=== PATIENT | female | born 1975 | race American Indian/Alaskan Native ===

== ENCOUNTER 2019-01-12 12:10 | Emergency (ER) | payer BC, OTHER ==
--- NOTE | 2019-01-12 13:30 | ED ---
Head Injury - HPI Summary HPI Summary: This patient is a 43 year old F presenting to [facility] accompanied by friend with a chief complaint of trauma from fall, today at 1120. Pt accidentally tripped and fell on concrete. Pt hit her nose, which is swollen, and cut the inside of her lip. Pt reports LOC for approx. one minute, and when she returned to consciousness her leg muscles felt paralyzed for a short period of time, could not see out of right eye, and she had mid back pain. Pt reports mid back pain, headache, and scraped leg now. Pt previously had a concussion in July. LNMP: 2 weeks ago. Pt has no PMHx, but has FHx of HTN, HLD, and diabetes. Pt does not drink, take drugs or smoke. - History Of Current Complaint Chief Complaint: EDHeadInjury Stated Complaint: FELL/INJURIES PER PT Time Seen by Provider: 01/12/19 13:07 Hx Obtained From: Patient Mechanism Of Injury: Direct Blow, Fall From A Standing Position Onset/Duration: Started Hours Ago - fell at 1120 Onset of Pain: Post Accident Severity Currently: Severe Pain Intensity: 8 Pain Scale Used: 0-10 Numeric Location of Head Injury: Frontal Associated Signs And Symptoms: LOC (Time In Secs./Mins/Hrs) - 1 minute, Swelling , Redness, Headache, Other: - upper back pain - Allergies/Home Medications Allergies/Adverse Reactions: Allergies Allergy/AdvReac Type Severity Reaction Status Date / Time kiwi Allergy Airway Verified 01/12/19 12:18 Obstruction Home Medications: Home Medications Amitriptyline TAB* [Elavil TAB*] 10 mg PO DAILY 01/12/19 [History Confirmed ] DULoxetine CAP* [Cymbalta CAP*] 60 mg PO DAILY 01/12/19 [History Confirmed ] OLANzapine TAB* [Zyprexa 10 MG TAB*] 20 mg PO DAILY 01/12/19 [History Confirmed 01/12/19] OLANzapine TAB* [Zyprexa 5 MG TAB*] 5 mg PO DAILY 01/12/19 [History Confirmed ] lamoTRIgine [Lamotrigine] 50 mg PO BID 01/12/19 [History Confirmed 01/12/19] PMH/Surg Hx/FS Hx/Imm Hx Respiratory History: Reports: Hx Asthma - A CHILD Sensory History: Reports: Hx Contacts or Glasses Denies: Hx Hearing Aid Opthamlomology History: Reports: Hx Contacts or Glasses Neurological History: Reports: Hx Migraine - hx of - Surgical History Surgery Procedure, Year, and Place: TUBAL LIGATION 2006 [facility] Hx Anesthesia Reactions: No Infectious Disease History: No Infectious Disease History: Denies: Traveled Outside the [place] in Last 30 Days - Family History Known Family History: Positive: Cardiac Disease, Hypertension, Diabetes - Social History Alcohol Use: None Substance Use Type: Reports: None Smoking Status (MU): Never Smoked Tobacco Do You Chew or Dip Tobacco: No Review of Systems Positive: Blurred Vision - Could not see out of right eye Positive: Other - Positive: Swollen Nose Positive: Other - Positive: Scraped Leg, Mid-Back Pain Positive: Headache All Other Systems Reviewed And Are Negative: Yes Physical Exam - Summary Physical Exam Summary: VITAL SIGNS: Reviewed. GENERAL: Patient is a well-developed and nourished female who is lying comfortable in the stretcher. Patient is not in any acute respiratory distress. HEAD AND FACE: No ecchymosis, hematomas or skull depressions. No sinus tenderness. Road rash on right side of face. Swelling on right side of face. EYES: PERRLA, EOMI x 2, No injected conjunctiva, no nystagmus. No photophobia. EARS: Hearing grossly intact. Ear canals and tympanic membranes are within normal limits. MOUTH: Oropharynx within normal limits. NECK: Supple, trachea is midline, no adenopathy, no JVD, no carotid bruit, no c- spine tenderness, neck with full ROM. No meningeal signs, no Kernig's or brudzinskis signs. CHEST: Symmetric, no tenderness at palpation LUNGS: Clear to auscultation bilaterally. No wheezing or crackles. CVS: Regular rate and rhythm, S1 and S2 present, no murmurs or gallops appreciated. ABDOMEN: Soft, non-tender. No signs of distention. No rebound no guarding, and no masses palpated. Bowel sounds are normal. EXTREMITIES: FROM in all major joints, no edema, no cyanosis or clubbing. NEURO: Alert and oriented x 3. No acute neurological deficits. Speech is normal and follows commands. SKIN: Dry and warm. GCS: 15 Triage Information Reviewed: Yes Vital Signs On Initial Exam: Initial Vitals Temp Pulse Resp BP Pulse Ox 98.6 F 81 18 147/96 98 01/12/19 12:14 01/12/19 12:14 01/12/19 12:14 01/12/19 12:14 01/12/19 12:14 Vital Signs Reviewed: Yes Procedures - Laceration/Wound Repair 1 Location: mouth - intermucosa Description: Irregular Anesthesia: 1.0%, Lido Length, Depth and Shape: 1.5cm Laceration/Wound Explored: clean Suture Type: Vicryl - 4-0 Number of Sutures: 3 Diagnostics - Vital Signs Vital Signs Temp Pulse Resp BP Pulse Ox 01/12/19 12:14 98.6 F 81 18 147/96 98 - Laboratory Lab Statement: Any lab studies that have been ordered have been reviewed, and results considered in the medical decision making process. - Radiology CXR Radiology Interpretation Completed By: Radiologist Summary of Radiographic Findings: CXR reveals, per radiologist, impression: No active cardiopulmonary disease. ED physician has reviewed this report. - CT Maxillofacial CT CT Interpretation Completed By: Radiologist Summary of CT Findings: Maxillofacial CT reveals, per radiologist, impression: right inferior orbital wall fracture with extension of orbital fat through the defect. ED physician has reviewed this radiology report. Brain CT CT Interpretation Completed By: Radiologist Summary of CT Findings: Brain CT reveals, per radiologist, impression: No CT evidence for traumatic brain injury. Based on correlation with the maxillofacial CT of the same date there is a RIGHT orbital floor blowout fracture with associated fluid level in the RIGHT maxillary sinus and soft tissue gas at the extraconal RIGHT orbit inferiorly. Refer to dedicated maxillofacial CT for full description. ED physician has reviewed this radiology report. Re-Evaluation - Re-Evaluation First Eval Re-Evaluation Time: 13:15 Comment: I discussed findings and results with the patient. 1622 Re-Evaluation Time: 16:25 Comment: I discussed acceptance of transfer of the patient. Head Injury Course/Dx Assessment/Plan: This patient is a 43 year old F presenting to [facility] accompanied by friend with a chief complaint of trauma from fall, today at 1120. Pt accidentally tripped and fell on concrete. Pt hit her nose, which is swollen, and cut the inside of her lip. Pt reports LOC for approx. one minute, and when she returned to consciousness her leg muscles felt paralyzed for a short period of time, could not see out of right eye, and she had mid back pain. Pt reports mid back pain, headache, and scraped leg now. Pt previously had a concussion in July. LNMP: 2 weeks ago. Pt has no PMHx, but has FHx of HTN, HLD, and diabetes. Pt does not drink, take drugs or smoke. The patient is stable in the ED. The patient doesnt have any entrapment of the eye. The patient declined any pain medication. Head CT IMPRESSION: 1. No CT evidence for traumatic brain injury. 2. Based on correlation with the maxillofacial CT of the same date there is a RIGHT. orbital floor blowout fracture with associated fluid level in the RIGHT maxillary sinus and soft tissue gas at the extraconal RIGHT orbit inferiorly. Refer to dedicated maxillofacial CT for full description. Maxillofacial CT IMPRESSION: RIGHT INFERIOR ORBITAL WALL FRACTURE WITH EXTENSION OF ORBITAL FAT THROUGH THE DEFECT. CXR IMPRESSION: NO ACTIVE CARDIOPULMONARY DISEASE. At this time we discussed the case with Dr. Baker ( ENT from [facility]) and he recommended for the patient to be transferred to the adult ED. The patient was accepted by Dr. Hebert, the ED physician. At this point I discussed the findings, test results and plan with the patient and she agrees with the plan to be transferred to [facility]. The patient continued to be stable, and she doesnt have any pain. She does not report any visual changes. Laceration was repaired by MATIAS Persaud , using 3 4-0 vicryl sutures of the intermucosa of the mouth. - Diagnoses Provider Diagnoses: Orbital wall fracture - Physician Notifications Discussed Care Of Patient With: Mark Baker - ENT Time Discussed With Above Provider: 16:18 Instructed by Provider To: Transfer - Transfer center spoke with Dr Baker from [facility], he recomends transfer of the pt to the adult ED. 16:22 - spoke with Dr. Hebert, the ED provider at [facility] who accepts the pt for transfer Discharge - Sign-Out/Discharge Documenting (check all that apply): Patient Departure - Transfer to [facility] Patient Received Moderate/Deep Sedation with Procedure: No - Discharge Plan Condition: Stable Disposition: TRANS HIGHER L OF CARE FAC Referrals: Judi Miller MD [Primary Care Provider] - - Billing Disposition and Condition Condition: STABLE Disposition: Trans Higher Lvl of Care Fac - Attestation Statements Document Initiated by Scribruel: Yes Documenting Scribe: Liz Batres Provider For Whom Wong is Documenting (Include Credential): Dr. Pio Dietrich MD Scribe Attestation: Liz Barron, scribed for Dr. Pio Dietrich MD on 01/12/19 at 1639. Scribe Documentation Reviewed: Yes Provider Attestation: The documentation as recorded by the Liz figueroa accurately reflects the service I personally performed and the decisions made by me, Dr. Pio Dietrich MD Status of Scribe Document: Ready
[2019-01-12] MEDS ORDERED: Lidocaine 1%** 5 ML VIAL INJ ONE (14:36)
[2019-01-12 17:35] VITALS: BP 121/78
== END 2019-01-12 17:34 | disposition short-term general hospital (02) ==
LOC: ED 12:10
DX: S02.81XA Fracture of other specified skull and facial bones, right side, initial encounter for closed fracture (principal); W01.0XXA Fall on same level from slipping, tripping and stumbling without subsequent striking against object, initial encounter; Z79.899 Other long term (current) drug therapy
CPT/HCPCS: 12011; 36415; 70450; 70486; 71046; 84702; 99283